=== PATIENT | female | born 1990 | race Caucasian/White ===

== ENCOUNTER 2017-08-18 15:36 | Outpatient (CLI) | payer OTHER ==
[2017-08-18 19:14] LABS: BASOPHILS # (AUTO) 0.1 10^3/uL (0.0-0.1); BASOPHILS % (AUTO) 1.3 %; EOSINOPHILS # (AUTO) 0.2 10^3/uL (0.0-0.7); EOSINOPHILS % (AUTO) 2.8 %; HCT - HEMATOCRIT 38.7 % (37.0-47.0); HGB - HEMOGLOBIN 12.9 g/dL (12.0-16.0); LYMPHOCYTES # (AUTO) 2.5 10^3/uL (1.5-3.5); LYMPHOCYTES % (AUTO) 33.5 %; MEAN CORPUSCULAR HGB CONC 33.4 g/dL (32.0-36.0); MEAN CORPUSCULAR VOLUME 89.9 fL (81.0-99.0); MEAN PLATELET VOLUME 8.6 fL (7.9-10.8); MONOCYTES # (AUTO) 0.6 10^3/uL (0.0-1.0); MONOCYTES % (AUTO) 8.2 %; NEUTROPHILS % (AUTO) 54.2 %; NUCLEATED RED BLOOD CELLS AUTO 0.1 /100WBC; RED BLOOD COUNT 4.31 10^6/uL (4.20-5.40); RED CELL DISTRIBUTION WIDTH 13.8 % (12.0-15.0); UNCORRECTED WHITE BLOOD COUNT 7.5 x10^3/uL; WHITE BLOOD COUNT 7.5 x10^3/uL (4.8-10.8)
[2017-08-18 19:26] LABS: H. PYLORI IGG ANTIBODY Negative (Negative); HPYLORI NEG QC Negative (Negative); HPYLORI POS QC POSITIVE (Positive)
[2017-08-18 19:39] LABS: ALBUMIN/GLOBULIN RATIO 1.4 (1.0-2.2); BILIRUBIN,TOTAL 0.4 mg/dL (0.2-1.0); BUN - BLOOD UREA NITROGEN 9 mg/dL (6-20); CALCIUM 9.2 mg/dL (8.5-10.3); CARBON DIOXIDE - CO2 26 mmol/L (21-32); CHLORIDE 104 mmol/L (101-111); CHOL/HDL RATIO 2.6 (<4.4); CHOLESTEROL 148 mg/dL; CREATININE 0.7 mg/dL (0.4-1.0); GFR - MDRD 101 (>89); GLUCOSE 82 mg/dL (70-100); HDL CHOLESTEROL 56 mg/dL; LDL/HDL RATIO 1.4 (<4.4); LIPASE 40 U/L (22-51); POTASSIUM 3.6 mmol/L (3.5-5.0); SODIUM 136 mmol/L (135-145); TOTAL PROTEIN 7.8 g/dL (6.7-8.2); TRIGLYCERIDES 76 mg/dL; VLDL CHOLESTEROL 15 mg/dL
== END 2017-08-18 15:37 | disposition home or self-care (01) ==
LOC: LAB.WCP 15:36
PROVIDERS: ATTEND Family Medicine
DX: Z00.00 Encounter for general adult medical examination without abnormal findings (principal); R11.2 Nausea with vomiting, unspecified
CPT/HCPCS: 36415; 80053; 80061; 83690; 85025; 87339

== ENCOUNTER 2017-11-18 10:21 | Outpatient (CLI) | payer OTHER | END 2017-11-18 10:22 | disposition home or self-care (01) | LOC: LAB.R 10:21 | PROVIDERS: ATTEND Obstetrics & Gynecology | DX: Z11.3 Encounter for screening for infections with a predominantly sexual mode of transmission (principal) | CPT/HCPCS: 87491; 87591 ==

== ENCOUNTER 2017-12-02 19:09 | Emergency (ER) | payer OTHER | END 2017-12-02 19:29 | disposition left against medical advice (07) | LOC: ED 19:09 | DX: Z53.21 Procedure and treatment not carried out due to patient leaving prior to being seen by health care provider (principal) ==

== ENCOUNTER 2020-11-08 04:02 | Outpatient (CLI) | payer OTHER | END 2020-11-08 04:03 | disposition short-term general hospital (02) | LOC: EMS 04:02 | DX: O99.893 Other specified diseases and conditions complicating puerperium (principal); R56.9 Unspecified convulsions | CPT/HCPCS: A0425; A0427 ==

== ENCOUNTER 2022-05-18 11:33 | Outpatient (CLI) | payer OTHER | END 2022-05-18 11:34 | disposition home or self-care (01) | LOC: LAB.N 11:33 | PROVIDERS: ATTEND Orthopaedic Surgery | DX: S52.531A Colles' fracture of right radius, initial encounter for closed fracture (principal) | CPT/HCPCS: 82306 ==

== ENCOUNTER 2022-06-08 08:00 | Outpatient (CLI) | payer OTHER ==
--- NOTE | 2022-06-08 16:36 | XRAY Report ---
PROCEDURE: Wrist 3 View RT INDICATIONS: WRIST FX TECHNIQUE: 3 views of the wrist were acquired. COMPARISON: X-ray wrist 8 06/04/2022 FINDINGS: Bones: No fractures or dislocations. No suspicious bony lesions. Crossing wire fusion is present w ithin the distal radius. Distal radial fracture which is comminuted and intra-articular is identified . There is slight persistent appearance of angulation. Ulna styloid fracture is present. Soft tissues: No suspicious soft tissue calcifications. IMPRESSION: Distal radial intra-articular fracture with postsurgical fusion as above. Reviewed by: Inga Guerra MD on 06/08/2022 4:35 PM PDT Approved by: Inga Guerra MD on 06/08/2022 4:35 PM PDT Station ID: [id number]
== END 2022-06-08 23:59 | disposition home or self-care (01) ==
LOC: DI.WOS 08:00
PROVIDERS: ATTEND Orthopaedic Surgery
DX: S52.571A Other intraarticular fracture of lower end of right radius, initial encounter for closed fracture (principal); S52.611A Displaced fracture of right ulna styloid process, initial encounter for closed fracture

== ENCOUNTER 2022-06-22 08:00 | Outpatient (CLI) | payer OTHER ==
--- NOTE | 2022-06-22 14:21 | XRAY Report ---
PROCEDURE: Wrist 3 View RT INDICATIONS: RIGHT WRIST FX TECHNIQUE: 3 views of the wrist were acquired. COMPARISON: 06/08/2022 FINDINGS: Bones: Interval removal of distal radius K wires. Comminuted, slightly angulated fracture planes are seen involving the distal radius extending to the articular surface. Mildly displaced ulnar styloid f racture is noted. There is stable position of fracture fragments, distal radioulnar joint and radioca rpal articulation post hardware removal. Trace bridging callus seen dorsally. Soft tissues: No suspicious soft tissue calcifications. IMPRESSION: 1. Stable position of healing fracture fragments post hardware removal. Reviewed by: Tammi Richter MD on 06/22/2022 2:20 PM PDT Approved by: Tammi Richter MD on 06/22/2022 2:20 PM PDT Station ID: [id number]
== END 2022-06-22 23:59 | disposition home or self-care (01) ==
LOC: DI.WOS 08:00
PROVIDERS: ATTEND Orthopaedic Surgery
DX: S52.531D Colles' fracture of right radius, subsequent encounter for closed fracture with routine healing (principal)

== ENCOUNTER 2024-01-06 17:15 | Outpatient (CLI) | payer OTHER ==
[2024-01-07 00:11] LABS: BACTERIAL VAGINOSIS DNA NEGATIVE (NEGATIVE); CANDIDA GLABRATA DNA NEGATIVE (NEGATIVE); CANDIDA GROUP DNA POSITIVE (NEGATIVE); CANDIDA KRUSEI DNA NEGATIVE (NEGATIVE); TRICHOMONAS VAGINALIS DNA NEGATIVE (NEGATIVE)
== END 2024-01-06 17:30 | disposition home or self-care (01) ==
LOC: LAB.N 17:15
PROVIDERS: ATTEND Physician Assistant
DX: N76.0 Acute vaginitis (principal)
CPT/HCPCS: 81514